=== PATIENT | female | born 1965 | race Two or more races ===

== ENCOUNTER 2021-01-20 09:45 | Inpatient (IN) | payer OTHER ==
[2021-01-20] MEDS ORDERED: NORVASC5 MG (11:46)
[2021-01-20] MEDS ORDERED: SYNTHROID100 MCG (11:46)
[2021-01-20] MEDS ORDERED: XARELTO20 MG (11:46)
[2021-01-20] MEDS ORDERED: CARAFATE1 GM (11:47)
[2021-01-20] MEDS ORDERED: CRESTOR40 MG (11:47)
[2021-01-20] MEDS ORDERED: CALTRATE 600+D1 EAC1 (11:47)
[2021-01-26] MEDS ORDERED: CLONAZEPAM1 MG (11:40)
[2021-01-26] MEDS ORDERED: PANTOPRAZOLE SO40 MG (11:40)
[2021-01-26] MEDS ORDERED: FAMOTIDINE20 MG (11:40)
[2021-01-29] MEDS ORDERED: OXYCODONE HCL5 MG PO ×2 (15:35)
[2021-01-29] MEDS ORDERED: POLY119PG PO ×2 (15:36)
== END 2021-01-29 19:02 | disposition home or self-care (01) | DRG 330 ==
LOC: O/R 01-26 08:18 → SURH 01-26 09:45
PROVIDERS: ADMIT Colon & Rectal Surgery; ATTEND Colon & Rectal Surgery
PROC: 0DBP4ZZ Excision of Rectum, Percutaneous Endoscopic Approach (ICD-10-PCS; 2021-01-26)
PROC: 0WQF4ZZ Repair Abdominal Wall, Percutaneous Endoscopic Approach (ICD-10-PCS; 2021-01-26)
PROC: 0DBE4ZZ Excision of Large Intestine, Percutaneous Endoscopic Approach (ICD-10-PCS; 2021-01-26)
PROC: 0DTN4ZZ Resection of Sigmoid Colon, Percutaneous Endoscopic Approach (ICD-10-PCS; principal; 2021-01-26 11:00)
DX: K57.32 Diverticulitis of large intestine without perforation or abscess without bleeding (principal); K92.1 Melena; K43.2 Incisional hernia without obstruction or gangrene; K76.0 Fatty (change of) liver, not elsewhere classified; I11.9 Hypertensive heart disease without heart failure; Z43.3 Encounter for attention to colostomy

== ENCOUNTER 2021-01-22 09:04 | Outpatient (CLI) | payer OTHER ==
[~2021-01-22 09:04] MED LIST: CALTRATE 600+D1 EAC1; CARAFATE1 GM; CRESTOR40 MG; NORVASC5 MG; SYNTHROID100 MCG; XARELTO20 MG
[2021-01-29] MEDS ORDERED: OXYCODONE HCL5 MG PO (15:35)
[2021-01-29] MEDS ORDERED: POLY119PG PO (15:36)
== END 2021-01-22 09:10 | disposition home or self-care (01) ==
LOC: RX STUDY 09:04
PROVIDERS: ATTEND Colon & Rectal Surgery
DX: K57.20 Diverticulitis of large intestine with perforation and abscess without bleeding (principal)

== ENCOUNTER 2021-02-16 12:32 | Emergency (ER) | payer OTHER ==
[~2021-02-16] VITALS: Ht 152.4 cm; Wt 50.8 kg
[~2021-02-16 12:32] MED LIST changes: +CLONAZEPAM1 MG; +FAMOTIDINE20 MG; +OXYCODONE HCL5 MG PO; +PANTOPRAZOLE SO40 MG; +POLY119PG PO
== END 2021-02-16 17:35 | disposition home or self-care (01) ==
LOC: ER 12:32
DX: R10.84 Generalized abdominal pain (principal); R31.9 Hematuria, unspecified; I10 Essential (primary) hypertension; Z20.822 Contact with and (suspected) exposure to COVID-19

== ENCOUNTER 2021-06-16 06:00 | Day surgery (SDC) | payer OTHER | END 2021-06-16 12:55 | disposition home or self-care (01) | LOC: AMB-ENDOS 06:00 | PROVIDERS: ATTEND Colon & Rectal Surgery | DX: K56.699 Other intestinal obstruction unspecified as to partial versus complete obstruction (principal); K62.4 Stenosis of anus and rectum; K57.30 Diverticulosis of large intestine without perforation or abscess without bleeding; K92.1 Melena; Z88.8 Allergy status to other drugs, medicaments and biological substances; Z20.822 Contact with and (suspected) exposure to COVID-19; K43.2 Incisional hernia without obstruction or gangrene; E78.00 Pure hypercholesterolemia, unspecified; E03.9 Hypothyroidism, unspecified; K76.0 Fatty (change of) liver, not elsewhere classified; R31.9 Hematuria, unspecified ==

== ENCOUNTER 2022-01-30 11:53 | Inpatient (IN) | payer OTHER ==
[~2022-01-30] VITALS: Ht 30.5 cm; Wt 51.3 kg
--- NOTE | 2022-01-30 12:13 | NUR ---
SE RECIBE PACIENTE ALERTA Y ORIENTADA X3 QUIEN REFIERE QUE LLEVA VARIOS PETE CON DOLOR PELVICO CR QUE EL MISMO AUMENTO EN ESTOS ULTIMOS DOS PETE. PACIENTE REFIERE QUE EN SERRANO SE LE REALIZO INES DILATACION DEL INTESTINO PORQUE ESTABA CERRADO. PACIENTE DEL DR TOUS. SE MONITOREAN S/V Y SE UBICA PACIENTE.
--- NOTE | 2022-01-30 15:33 | NUR ---
FEMINA ALERTA Y ORIENTADA X3 EVALUADA POR DR SYMONE [place] [facility]. SE EDUCA Y REFIERE ENTENDER. SE COLECTAN MUESTRAS DE TAMELA BAJO MEDIDAS ASEPTICAS. PEND PREPARAR A PTE PARA EXAMEN RECTAL.
--- NOTE | 2022-01-30 23:23 | NUR ---
SE RECIBE PTE ALERTA Y ORIENTADA EN AMBROSE BAJA CON BARANDAS ELEVADAS POR SEGURIDAD. SE OBSERVA CON BUEN PATRON RESPIRATORIO. PEND FLEET ENEMA. SE MANTIENE BAJO OBSERVACION POR CAMBIOS SIGNIFICATIVOS
--- NOTE | 2022-01-31 07:01 | NUR ---
SE RECIEB PTE FEMENINA DE 56 ANOS ALERTA Y ORIENTADA X3 QUIEN AL MOMENTO NO REFIERE DOLOR. PTE SE OBSERBA EN DESCANSO ABSOLUTO EN CAMA. PTE PEND A CONSUTA CON DR LIZARRAGA POR RECTAL STENOSIS.
[2022-02-01] MEDS ORDERED: MELATONIN5 M2 (15:26)
[2022-02-01] MEDS ORDERED: CLONAZEPAM1 MG (15:26)
[2022-02-01] MEDS ORDERED: BANOPHEN25 MG (15:26)
== END 2022-02-02 10:35 | disposition home or self-care (01) | DRG 389 ==
LOC: ER 11:53 → SEC-K 01-31 13:41 → SURH 01-31 13:41
PROVIDERS: ADMIT Colon & Rectal Surgery; ATTEND Colon & Rectal Surgery
PROC: 0DJD8ZZ Inspection of Lower Intestinal Tract, Via Natural or Artificial Opening Endoscopic (ICD-10-PCS; principal; 2022-02-01)
PROC: 02HV33Z Insertion of Infusion Device into Superior Vena Cava, Percutaneous Approach (ICD-10-PCS; 2022-02-01)
DX: K56.699 Other intestinal obstruction unspecified as to partial versus complete obstruction (principal); K57.32 Diverticulitis of large intestine without perforation or abscess without bleeding; K62.4 Stenosis of anus and rectum; K64.0 First degree hemorrhoids; I11.9 Hypertensive heart disease without heart failure; E03.9 Hypothyroidism, unspecified; Z93.3 Colostomy status; K43.2 Incisional hernia without obstruction or gangrene

== ENCOUNTER 2024-07-31 06:41 | Day surgery (SDC) | payer OTHER ==
[~2024-07-31 06:41] MED LIST changes: +BANOPHEN25 MG; +MELATONIN5 M2
[2024-07-31] MEDS ORDERED: DIPHENHYDRAMINE HCL 50 MG/ML VIAL 1ML IV ONE (12:00)
[2024-07-31] MEDS ORDERED: MIDAZOLAM HCL 2 MG/2 ML VIAL IV ONE (12:00)
[2024-07-31] MEDS ORDERED: fentaNYL CITRATE 50 MCG/ML AMPUL IV PUSH ONE (12:00)
== END 2024-07-31 13:10 | disposition home or self-care (01) ==
LOC: AMB-ENDOS 06:41
PROVIDERS: ATTEND Colon & Rectal Surgery
DX: K57.20 Diverticulitis of large intestine with perforation and abscess without bleeding (principal); Z86.0100 Personal history of colon polyps, unspecified; Z88.6 Allergy status to analgesic agent; K57.32 Diverticulitis of large intestine without perforation or abscess without bleeding; K92.1 Melena; K62.4 Stenosis of anus and rectum